=== PATIENT | female | born 1985 | race Caucasian/White ===

== ENCOUNTER 2019-02-07 08:54 | Day surgery (SDC) | payer OTHER ==
[2019-02-06 10:29] VITALS: BMI 44.2
[2019-02-07] MEDS ORDERED: LIDOCAINE 1% 20 ML VIAL (10MG/ML) FOR IV START INTRADERMA PRN (09:04)
[2019-02-07] MEDS ORDERED: LACTATED RINGERS 1,000 ML IV SCH (09:04)
[2019-02-07 09:39] VITALS: TEMP 99
[2019-02-07 09:45] LABS: Glucose,Whole Blood 110 mg/dL (75-99)
[2019-02-07] MEDS ORDERED: ONDANSETRON 4 MG/2 ML VIAL IVP ONE (09:45)
[2019-02-07] MEDS ORDERED: fentaNYL (PF) 50 MCG/ML 2 ML AMP ONE (10:18)
[2019-02-07] MEDS ORDERED: MIDAZOLAM 2 MG/2 ML VIAL ONE (10:18)
[2019-02-07] MEDS ORDERED: PROPOFOL 10 MG/ML 20 ML VIAL IV ONE (10:18)
[2019-02-07] MEDS ORDERED: LIDOCAINE 1% INJ 10MG/ML (20 ML MDV) ONE (10:18)
--- NOTE | 2019-02-07 10:50 | P.PCN ---
Date of Procedure: 02/07/19 Description of Procedure: BRIEF HISTORY: Patient is a 33-year-old pleasant female scheduled for an elective colonoscopy as a part of evaluation after her third documented episode of diverticulitis. This occurred in 11/2018 after which the patient was treated with 2 rounds of antibiotic therapy. She reports symptomatic improvement. Prior episodes did not require hospitalization. No prior colonoscopy reported. PROCEDURE PERFORMED: Colonoscopy. PREOPERATIVE DIAGNOSIS: Diverticulitis, abnormal computed tomography scan abdomen. ESTIMATED BLOOD LOSS: Minimal. IV sedation per Anesthesia. PROCEDURE: After informed consent was obtained, the patient, was brought into the endoscopy unit. IV sedation was administered by Anesthesia under continuous monitoring. Digital rectal examination was normal. Initially the Olympus CF-190 flexible video colonoscope was then inserted in the rectum, gradually advanced into the cecum without any difficulty. Careful examination was performed as the scope was gradually being withdrawn. Ileocecal valve and the appendiceal orifice were visualized and appeared normal. Prep was excellent. Mucosa of the cecum, ascending colon, transverse colon, descending colon, sigmoid colon, and rectum appeared normal. Mild left colonic diverticulosis, with multiple small mouth diverticula noted. Retroflexion was performed in the rectum and no lesions were seen. The patient tolerated the procedure well. IMPRESSION: Normal-appearing colon from rectum to cecum. Mild left-sided diverticulosis. RECOMMENDATIONS: Findings of this examination were discussed with the patient and mother. Okay to resume diet. Recommend fiber supplementation. Okay to resume medications. Repeat colonoscopy for screening purposes in 10 years.
[2019-02-07 10:53] VITALS: RESP 16
[2019-02-07 11:02] VITALS: BP 111/74; PULSE 72
== END 2019-02-07 11:16 | disposition home or self-care (01) ==
LOC: ORWHC2ENDO 08:54
PROVIDERS: ATTEND Internal Medicine
DX: K57.30 Diverticulosis of large intestine without perforation or abscess without bleeding (principal); E11.9 Type 2 diabetes mellitus without complications; K21.9 Gastro-esophageal reflux disease without esophagitis; G47.33 Obstructive sleep apnea (adult) (pediatric); Z88.1 Allergy status to other antibiotic agents; Z88.0 Allergy status to penicillin; Z99.89 Dependence on other enabling machines and devices; Z79.84 Long term (current) use of oral hypoglycemic drugs; Z79.1 Long term (current) use of non-steroidal anti-inflammatories (NSAID); Z79.890 Hormone replacement therapy; Z79.899 Other long term (current) drug therapy; E07.9 Disorder of thyroid, unspecified
CPT/HCPCS: 81025; 45378; J2250; J2405; J2001; J3010; J2704

== ENCOUNTER 2022-03-02 16:05 | Emergency (ER) | payer OTHER ==
[2022-03-02 16:08] VITALS: TEMP 96.7
[2022-03-02] MEDS ORDERED: SODIUM CHLORIDE 0.9% 1,000 ML IV STA (16:33)
[2022-03-02] MEDS ORDERED: KETOROLAC 15 MG/ML 1 ML VIAL IVP STA (16:33)
[2022-03-02] MEDS ORDERED: ONDANSETRON 4 MG/2 ML VIAL IVP STA (16:33)
--- NOTE | 2022-03-02 16:39 | ED ---
Abdominal Pain HPI - General Chief Complaint: Abdominal Pain Stated Complaint: ABD Pain Time Seen by Provider: 03/02/22 16:15 Source: patient, RN notes reviewed Mode of arrival: ambulatory Limitations: no limitations - History of Present Illness Initial Comments: This is a 36-year-old female with a past medical history of diverticulitis who presents to the emergency department for abdominal pain. States that starting yesterday, she developed pain in the left upper and lower quadrant with associated nausea, which began right after eating. She's had multiple bouts of diverticulitis and this feels similar. She most recently had diverticulitis [address] Kang does have her on dicyclomine, which she is supposed to take when she feels an episode coming on, in an attempt to limit antibiotic use. She does take [place] regularly, which has been ineffective for this pain. Believes that this was caused by eating [place] seeds. Denies any fevers, chills, sore throat, cough, dyspnea, chest pain, palpitations, vomiting, diarrhea, back pain, or headaches. MD Complaint: abdominal pain Onset/Timin -: days(s) Location: LLQ Associated Symptoms: nausea Treatments Prior to Arrival: prescription analgesics - Related Data Home Medications Medication Instructions Recorded Confirmed Gabapentin [Neurontin] 100 mg PO DAILY 02/06/19 03/02/22 Gabapentin [Neurontin] 200 mg PO DAILY@1700 02/06/19 03/02/22 Ibuprofen [Motrin] 800 mg PO TID PRN 02/06/19 03/02/22 Levothyroxine Sodium [Levoxyl] 200 mcg PO DAILY 02/06/19 03/02/22 Omeprazole 20 mg PO DAILY 02/06/19 03/02/22 Phentermine HCl [Adipex-P] 37.5 mg PO DAILY 02/06/19 03/02/22 methocarbamoL [Robaxin] 500 mg PO DAILY 02/06/19 03/02/22 Ascorbic Acid [Vitamin C] 1,000 mg PO DAILY 03/02/22 03/02/22 Calcium Carbonate [Calcium] 600 mg PO DAILY 03/02/22 03/02/22 Cetirizine HCl 10 mg PO DAILY PRN 03/02/22 03/02/22 Cholecalciferol [Vitamin D3 (25 50 mcg PO DAILY 03/02/22 03/02/22 Mcg = 1000 Iu)] Ciclopirox 8% Solution 1 applic TOPICAL HS PRN 03/02/22 03/02/22 Ciprofloxacin HCl [Cipro] 500 mg PO Q12HR 03/02/22 03/02/22 Fluticasone Nasal [place] [Flonase 2 spray EA NOSTRIL DAILY 03/02/22 03/02/22 Nasal [place]] Gabapentin [Neurontin] 100 mg PO DAILY@1200 PRN 03/02/22 03/02/22 HYDROcodone/APAP 5-325MG [[place] 1 tab PO TID PRN 03/02/22 03/02/22 5-325] Meloxicam [Mobic] 15 mg PO DAILY 03/02/22 03/02/22 Multivitamins, Thera [Multivitamin 1 tab PO DAILY 03/02/22 03/02/22 (formulary)] [place]-3/Dha/Epa/Fish Oil [Fish Oil 1 cap PO DAILY 03/02/22 03/02/22 1,000 mg Softgel] Ondansetron Odt [Zofran Odt] 4 mg PO TID PRN 03/02/22 03/02/22 Zinc Gluconate [Zinc] 50 mg PO DAILY 03/02/22 03/02/22 metFORMIN HCL ER [Glucophage XR] 500 mg PO HS 03/02/22 03/02/22 methocarbamoL [Methocarbamol] 500 mg PO DAILY PRN 03/02/22 03/02/22 methocarbamoL [Methocarbamol] 750 mg PO DAILY@1700 03/02/22 03/02/22 polyethylene glycoL 3350 [Miralax] 17 gm PO DAILY PRN 03/02/22 03/02/22 tiZANidine HCL 4 mg PO HS 03/02/22 03/02/22 Allergies Allergy/AdvReac Type Severity Reaction Status Date / Time amoxicillin Allergy Rash/Hives Verified 03/02/22 17:08 Penicillins Allergy Rash/Hives Verified 03/02/22 17:08 Review of Systems ROS Statement: Those systems with pertinent positive or pertinent negative responses have been documented in the HPI. ROS Other: All systems not noted in ROS Statement are negative. Past Medical History Past Medical History: Diabetes Mellitus, GERD/Reflux, Thyroid Disorder Additional Past Medical History / Comment(s): DIVERTICULOSIS. BOWEL PERFORATION 12/03/18-NO SURGERY REQUIRED History of Any Multi-Drug Resistant Organisms: None Reported Past Surgical History: Adenoidectomy, Bariatric Surgery, Tonsillectomy, Tubal Ligation Additional Past Surgical History / Comment(s): D & C FOR MISCARRIAGE. PAIN CLINIC PROCEDURES. WISDOM TEETH REMOVED UNDER ANESTHESIA Past Anesthesia/Blood Transfusion Reactions: No Reported Reaction Past Psychological History: Anxiety Smoking Status: Former smoker Past Alcohol Use History: None Reported Past Drug Use History: None Reported - Past Family History Mother Family Medical History: No Reported History General Exam Limitations: no limitations General appearance: alert, in no apparent distress Head exam: Present: atraumatic, normocephalic, normal inspection Respiratory exam: Present: normal lung sounds bilaterally. Absent: respiratory distress, wheezes, rales, rhonchi, stridor Cardiovascular Exam: Present: regular rate, normal rhythm, normal heart sounds. Absent: systolic murmur, diastolic murmur, rubs, gallop, clicks GI/Abdominal exam: Present: soft, tenderness (LLQ and LUQ), normal bowel sounds. Absent: distended Neurological exam: Present: alert, oriented X3, CN II-XII intact Psychiatric exam: Present: normal affect, normal mood Skin exam: Present: warm, dry, intact, normal color. Absent: rash Course Vital Signs 03/02/22 03/02/22 16:06 19:35 Temperature 96.7 F L Pulse Rate 95 74 Respiratory 18 15 Rate Blood Pressure 145/86 139/74 O2 Sat by Pulse 98 99 Oximetry Medical Decision Making - Medical Decision Making This is a 36-year-old female who presents to the emergency department for abdominal pain. Lab work obtained and found to be nonactionable. Urinalysis is negative for any signs of infection. She was given IV fluids, Zofran, and Toradol, which she states was effective in managing her symptoms. Computed tomography scan of the abdomen and pelvis obtained. On my interpretation, I do not identify any signs of free air or bowel wall thickening. She does have a gallstone in the gallbladder neck along with dilation of the gallbladder. Ultrasound of the gallbladder was subsequently obtained. I am able to visualize a gallstone in the gallbladder neck. She has a negative sonographic Hoyos's sign and no evidence for gallbladder wall thickening to suggest an acute cholecystitis. Symptoms are most likely related to an episode of biliary colic due to the lack of acute intra-abdominal process on the computed tomography scan and the noted gallstone. She was given information to follow up with general surgery and instructed to avoid fatty or greasy foods for the meantime. Return precautions reviewed in depth, the patient is instructed to return to the emergency department with any new, worsening, or concerning symptoms. Patient verbalized understanding. This case was discussed in detail with the attending ED physician. Presentation, findings, and treatment plan discussed in detail as well. - Lab Data Result diagrams: 03/02/22 Unknown 03/02/22 Unknown Lab Results 03/02/22 03/02/22 03/02/22 Range/Units Unknown Unknown Unknown WBC 6.9 (3.8-10.6) k/uL RBC 4.68 (3.80-5.40) m/uL Hgb 15.0 (11.4-16.0) gm/dL Hct 42.7 (34.0-46.0) % MCV 91.2 (80.0-100.0) fL MCH 32.0 (25.0-35.0) pg MCHC 35.1 (31.0-37.0) g/dL RDW 12.0 (11.5-15.5) % Plt Count 333 (150-450) k/uL MPV 7.8 Neutrophils % 61 % Lymphocytes % 30 % Monocytes % 5 % Eosinophils % 2 % Basophils % 1 % Neutrophils # 4.2 (1.3-7.7) k/uL Lymphocytes # 2.1 (1.0-4.8) k/uL Monocytes # 0.3 (0-1.0) k/uL Eosinophils # 0.1 (0-0.7) k/uL Basophils # 0.1 (0-0.2) k/uL Sodium (137-145) mmol/L Potassium (3.5-5.1) mmol/L Chloride (98-107) mmol/L Carbon Dioxide (22-30) mmol/L Anion Gap mmol/L BUN (7-17) mg/dL Creatinine (0.52-1.04) mg/dL Est GFR (CKD-EPI)AfAm (>60 ml/min/1.73 sqM) Est GFR (CKD-EPI)NonAf (>60 ml/min/1.73 sqM) Glucose (74-99) mg/dL Calcium (8.4-10.2) mg/dL Total Bilirubin (0.2-1.3) mg/dL AST (14-36) U/L ALT (4-34) U/L Alkaline Phosphatase (38-126) U/L Total Protein (6.3-8.2) g/dL Albumin (3.5-5.0) g/dL Amylase (30-110) U/L Lipase (23-300) U/L Urine Color Yellow Urine Appearance Cloudy H (Clear) Urine pH 6.5 (5.0-8.0) Ur Specific [place] 1.034 (1.001-1.035) Urine Protein 1+ H (Negative) Urine Glucose (UA) Negative (Negative) Urine Ketones Negative (Negative) Urine Blood Negative (Negative) Urine Nitrite Negative (Negative) Urine Bilirubin Negative (Negative) Urine Urobilinogen <2.0 (<2.0) mg/dL Ur Leukocyte Esterase Negative (Negative) Urine RBC 7 H (0-5) /hpf Urine WBC 1 (0-5) /hpf Ur Squamous Epith Cells 5 H (0-4) /hpf Urine Mucus Many H (None) /hpf Urine HCG, Qual Not Detected (Not Detectd) 03/02/22 Range/Units Unknown WBC (3.8-10.6) k/uL RBC (3.80-5.40) m/uL Hgb (11.4-16.0) gm/dL Hct (34.0-46.0) % MCV (80.0-100.0) fL MCH (25.0-35.0) pg MCHC (31.0-37.0) g/dL RDW (11.5-15.5) % Plt Count (150-450) k/uL MPV Neutrophils % % Lymphocytes % % Monocytes % % Eosinophils % % Basophils % % Neutrophils # (1.3-7.7) k/uL Lymphocytes # (1.0-4.8) k/uL Monocytes # (0-1.0) k/uL Eosinophils # (0-0.7) k/uL Basophils # (0-0.2) k/uL Sodium 139 (137-145) mmol/L Potassium 4.0 (3.5-5.1) mmol/L Chloride 101 (98-107) mmol/L Carbon Dioxide 31 H (22-30) mmol/L Anion Gap 7 mmol/L BUN 22 H (7-17) mg/dL Creatinine 0.53 (0.52-1.04) mg/dL Est GFR (CKD-EPI)AfAm >90 (>60 ml/min/1.73 sqM) Est GFR (CKD-EPI)NonAf >90 (>60 ml/min/1.73 sqM) Glucose 95 (74-99) mg/dL Calcium 9.5 (8.4-10.2) mg/dL Total Bilirubin 0.4 (0.2-1.3) mg/dL AST 18 (14-36) U/L ALT 20 (4-34) U/L Alkaline Phosphatase 89 (38-126) U/L Total Protein 7.5 (6.3-8.2) g/dL Albumin 4.8 (3.5-5.0) g/dL Amylase 56 (30-110) U/L Lipase 72 (23-300) U/L Urine Color Urine Appearance (Clear) Urine pH (5.0-8.0) Ur Specific [place] (1.001-1.035) Urine Protein (Negative) Urine Glucose (UA) (Negative) Urine Ketones (Negative) Urine Blood (Negative) Urine Nitrite (Negative) Urine Bilirubin (Negative) Urine Urobilinogen (<2.0) mg/dL Ur Leukocyte Esterase (Negative) Urine RBC (0-5) /hpf Urine WBC (0-5) /hpf Ur Squamous Epith Cells (0-4) /hpf Urine Mucus (None) /hpf Urine HCG, Qual (Not Detectd) - Radiology Data Radiology results: report reviewed, image reviewed Disposition Clinical Impression: Abdominal pain, Biliary colic Disposition: HOME SELF-CARE Instructions (If sedation given, give patient instructions): Biliary Colic (ED), Gallstones (ED), Low Fat Diet (ED), Abdominal Pain (ED) Additional Instructions: Return to the emergency department with any new, worsening, or concerning symptoms. Contact Dr. Peoples, general surgery, as listed below to discuss removal of your gallbladder. Follow up with your primary care provider in 1-2 days. Is patient prescribed a controlled substance at d/c from ED?: No Referrals: Nonstaff,Physician [REFERRING] - 1-2 days Carissa Peoples MD [STAFF PHYSICIAN] - 1-2 days
[2022-03-02 16:54] LABS: Basophils # (A) 0.1 k/uL (0-0.2); Basophils % (A) 1 %; Eosinophils # (A) 0.1 k/uL (0-0.7); Eosinophils % (A) 2 %; HCT 42.7 % (34.0-46.0); Lymphocytes # (A) 2.1 k/uL (1.0-4.8); Lymphocytes % (A) 30 %; MCHC 35.1 g/dL (31.0-37.0); MCV 91.2 fL (80.0-100.0); Mean Platelet Volume 7.8; Monocytes # (A) 0.3 k/uL (0-1.0); Monocytes % (A) 5 %; Neutrophils # (A) 4.2 k/uL (1.3-7.7); Neutrophils % (A) 61 %; Platelet Count 333 k/uL (150-450); RBC 4.68 m/uL (3.80-5.40); WBC 6.9 k/uL (3.8-10.6)
[2022-03-02 17:09] LABS: ALT 20 U/L (4-34); AST 18 U/L (14-36); African American GFR (CKD) >90 (>60 ml/min/1.73 sqM); Albumin 4.8 g/dL (3.5-5.0); Alkaline Phosphatase 89 U/L (38-126); Amylase 56 U/L (30-110); Anion Gap 7 mmol/L; Blood Urea Nitrogen 22 mg/dL (7-17); Calcium 9.5 mg/dL (8.4-10.2); Carbon Dioxide 31 mmol/L (22-30); Chloride 101 mmol/L (98-107); Glucose 95 mg/dL (74-99); Lipase 72 U/L (23-300); Non-African American GFR(CKD) >90 (>60 ml/min/1.73 sqM); Sodium 139 mmol/L (137-145); Total Bilirubin 0.4 mg/dL (0.2-1.3); Total Protein 7.5 g/dL (6.3-8.2)
--- NOTE | 2022-03-02 18:01 | CT ---
EXAMINATION TYPE: CT abdomen pelvis w con CT DLP: 1389.1 mGycm, Automated exposure control for dose reduction was used. DATE OF EXAM: 03/02/2022 5:35 PM COMPARISON: None CLINICAL INDICATION:Female, 36 years old with history of LLQ abdominal pain, hx of diverticulitis; LL Q pain, h/o diverticulitis TECHNIQUE: Axial CT of the abdomen and pelvis. Sagittal and coronal reformats were created on a [employer] workstation. Contrast used:100 mL of Isovue 300 with IV Contrast, Oral contrast used: without Oral Contrast FINDINGS: LOWER CHEST: Unremarkable ABDOMEN LIVER: Unremarkable GALLBLADDER AND BILE DUCTS: Large gallstone in the gallbladder neck. Gallbladder somewhat distended. PANCREAS: Unremarkable. SPLEEN: Unremarkable. ADRENAL GLANDS: Unremarkable. KIDNEYS AND URETERS: No evidence of hydronephrosis or renal calculus. The ureters are unremarkable. PELVIS BLADDER: Nondistended REPRODUCTIVE: Dominant left ovarian follicle measuring up to 2.7 cm. ABDOMEN & PELVIS STOMACH AND BOWEL: No evidence of bowel obstruction. Postsurgical changes to the gastric lumen. Appen [place] is normal. Scattered clonic diverticula present. There is redundant sigmoid colon. PERITONEUM: No evidence of pneumoperitoneum or free fluid. VASCULATURE: No evidence of aortic aneurysm. MUSCULOSKELETAL: No acute osseous abnormalities, multilevel disc degeneration changes of the spine. LYMPH NODES: No gross evidence for lymphadenopathy. SOFT TISSUE/ABDOMINAL WALL: Unremarkable IMPRESSION: 1. No evidence for acute abdominal process. 2. Scattered clonic diverticula without evidence for radiculitis. 3. Cholelithiasis with a distended gallbladder. 4. Post surgical changes stomach. 5. Dominant left ovarian follicle measuring up to 2.7 cm.
[2022-03-02 18:09] LABS: Appearance,Urine Cloudy (Clear); Bilirubin,Urine Negative (Negative); Blood,Urine Negative (Negative); Color,Urine Yellow; Glucose,Urine (UA) Negative (Negative); Ketones,Urine Negative (Negative); Leukocyte Esterase,Urine Negative (Negative); Mucus,Urine Many /hpf; Nitrite,Urine Negative (Negative); PH, Urine 6.5 (5.0-8.0); Protein,Urine 1+ (Negative); RBC,Urine 7 /hpf (0-5); Specific Gravity,Urine 1.034 (1.001-1.035); Squamous Epithelial Cell,Urine 5 /hpf (0-4); Urobilinogen,Urine <2.0 mg/dL (<2.0); WBC,Urine 1 /hpf (0-5)
--- NOTE | 2022-03-02 18:59 | US ---
EXAMINATION TYPE: US gallbladder DATE OF EXAM: 03/02/2022 COMPARISON: CT: Today CLINICAL HISTORY: Upper abdominal pain, distended gallbladder on CT. abd pain x 1 day. Cholelithiasis TECHNIQUE: Multiple sonographic images of the right upper quadrant are obtained. FINDINGS: EXAM MEASUREMENTS: Liver Length: 13.6 cm Gallbladder Wall: 0.23 cm CBD: 0.50 cm Right Kidney: 11.4 x 5.6 x 4.9 cm Pancreas: Obscured by bowel gas Liver: wnl Gallbladder: Large mobile gallstone visualized Evidence for sonographic Hoyos's sign: No CBD: wnl Right Kidney: wnl IMPRESSION: Cholelithiasis without evidence for acute cholecystitis.
[2022-03-02 19:35] VITALS: BP 139/74; PULSE 74; RESP 15
== END 2022-03-02 19:35 | disposition home or self-care (01) ==
LOC: EC 16:05
DX: K80.66 Calculus of gallbladder and bile duct with acute and chronic cholecystitis without obstruction (principal); E11.9 Type 2 diabetes mellitus without complications; K21.9 Gastro-esophageal reflux disease without esophagitis; E07.9 Disorder of thyroid, unspecified; F41.9 Anxiety disorder, unspecified; Z88.0 Allergy status to penicillin; Z87.891 Personal history of nicotine dependence; Z79.83 Long term (current) use of bisphosphonates; Z79.899 Other long term (current) drug therapy
CPT/HCPCS: 36415; 80053; 82150; 83690; 85025; 81001; 81025; 76705; 74177; 99284; 96374; 96375; 96361; J2405; J1885; Q9967

== ENCOUNTER 2022-03-03 19:11 | Observation (INO) | payer OTHER ==
[2022-03-03] MEDS ORDERED: SODIUM CHLORIDE 0.9% 1,000 ML IV STA (20:54)
[2022-03-03] MEDS ORDERED: HYDROmorphone 1 MG/ML 1 ML SYRINGE IVP STA (21:01)
[2022-03-03] MEDS ORDERED: SODIUM CHLORIDE 0.9% 2,000 ML IV ONE (21:01)
[2022-03-03] MEDS ORDERED: ONDANSETRON 4 MG/2 ML VIAL IVP STA (21:02)
[2022-03-03 21:23] LABS: Basophils # (A) 0.1 k/uL (0-0.2); Basophils % (A) 0 %; Eosinophils # (A) 0.1 k/uL (0-0.7); Eosinophils % (A) 1 %; HCT 47.1 % (34.0-46.0); HGB 16.4 gm/dL (11.4-16.0); Lymphocytes # (A) 1.5 k/uL (1.0-4.8); Lymphocytes % (A) 12 %; MCH 31.9 pg (25.0-35.0); MCHC 34.8 g/dL (31.0-37.0); MCV 91.7 fL (80.0-100.0); Monocytes # (A) 0.5 k/uL (0-1.0); Monocytes % (A) 4 %; Neutrophils # (A) 10.5 k/uL (1.3-7.7); Neutrophils % (A) 82 %; Platelet Count 319 k/uL (150-450); RBC 5.14 m/uL (3.80-5.40); RDW 11.9 % (11.5-15.5); WBC 12.7 k/uL (3.8-10.6)
--- NOTE | 2022-03-03 21:47 | ED ---
Abdominal Pain HPI - General Chief Complaint: Abdominal Pain Stated Complaint: Abd Pain Time Seen by Provider: 03/03/22 20:53 Source: patient, RN notes reviewed Mode of arrival: ambulatory Limitations: no limitations - History of Present Illness Initial Comments: This is a pleasant 36-year-old female presents to emergency department complaining of right upper quadrant abdominal pain. She is describing sharp pain which is exacerbated by taking anything by mouth. This includes fluids. Patient states she left here last night after having the same pain. Patient states it was controlled somewhat. However she states when she went to take her medications with only a sip of water this morning. She had an increase in pain again. Patient also has had vomiting. Denying any fever. Patient had both a computed tomography scan and an ultrasound last night. Patient previously has had gastric bypass surgery [place]. No headache, no fever or chills, no changes in vision or hearing, no sore throat or difficulty with speech, no neck pain, no chest pain or shortness of breath, no changes in urination or bowel movements, no numbness or tingling, no extremity pain, no skin rashes or lesions. Past medical, surgical, social, and family history reviewed. MD Complaint: abdominal pain - Related Data Home Medications Medication Instructions Recorded Confirmed Gabapentin [Neurontin] 100 mg PO DAILY 02/06/19 03/03/22 Gabapentin [Neurontin] 200 mg PO DAILY@1700 02/06/19 03/03/22 Ibuprofen [Motrin] 800 mg PO TID PRN 02/06/19 03/03/22 Levothyroxine Sodium [Levoxyl] 200 mcg PO DAILY 02/06/19 03/03/22 Omeprazole 20 mg PO DAILY 02/06/19 03/03/22 Phentermine HCl [Adipex-P] 37.5 mg PO DAILY 02/06/19 03/03/22 methocarbamoL [Robaxin] 500 mg PO DAILY 02/06/19 03/03/22 Ascorbic Acid [Vitamin C] 1,000 mg PO DAILY 03/02/22 03/03/22 Calcium Carbonate [Calcium] 600 mg PO DAILY 03/02/22 03/03/22 Cetirizine HCl 10 mg PO DAILY PRN 03/02/22 03/03/22 Cholecalciferol [Vitamin D3 (25 50 mcg PO DAILY 03/02/22 03/03/22 Mcg = 1000 Iu)] Ciclopirox 8% Solution 1 applic TOPICAL HS PRN 03/02/22 03/03/22 Ciprofloxacin HCl [Cipro] 500 mg PO Q12HR 03/02/22 03/03/22 Fluticasone Nasal [place] [Flonase 2 spray EA NOSTRIL DAILY 03/02/22 03/03/22 Nasal [place]] Gabapentin [Neurontin] 100 mg PO DAILY@1200 PRN 03/02/22 03/03/22 HYDROcodone/APAP 5-325MG [[place] 1 tab PO TID PRN 03/02/22 03/03/22 5-325] Meloxicam [Mobic] 15 mg PO DAILY 03/02/22 03/03/22 Multivitamins, Thera [Multivitamin 1 tab PO DAILY 03/02/22 03/03/22 (formulary)] [place]-3/Dha/Epa/Fish Oil [Fish Oil 1 cap PO DAILY 03/02/22 03/03/22 1,000 mg Softgel] Ondansetron Odt [Zofran Odt] 4 mg PO TID PRN 03/02/22 03/03/22 Zinc Gluconate [Zinc] 50 mg PO DAILY 03/02/22 03/03/22 metFORMIN HCL ER [Glucophage XR] 500 mg PO HS 03/02/22 03/03/22 methocarbamoL [Methocarbamol] 500 mg PO DAILY PRN 03/02/22 03/03/22 methocarbamoL [Methocarbamol] 750 mg PO DAILY@1700 03/02/22 03/03/22 polyethylene glycoL 3350 [Miralax] 17 gm PO DAILY PRN 03/02/22 03/03/22 tiZANidine HCL 4 mg PO HS 03/02/22 03/03/22 Allergies Allergy/AdvReac Type Severity Reaction Status Date / Time amoxicillin Allergy Rash/Hives Verified 03/03/22 20:29 Penicillins Allergy Rash/Hives Verified 03/03/22 20:29 Review of Systems ROS Statement: Those systems with pertinent positive or pertinent negative responses have been documented in the HPI. ROS Other: All systems not noted in ROS Statement are negative. Past Medical History Past Medical History: Diabetes Mellitus, GERD/Reflux, Thyroid Disorder Additional Past Medical History / Comment(s): DIVERTICULOSIS. BOWEL PERFORATION 12/03/18-NO SURGERY REQUIRED History of Any Multi-Drug Resistant Organisms: None Reported Past Surgical History: Adenoidectomy, Bariatric Surgery, Tonsillectomy, Tubal Ligation Additional Past Surgical History / Comment(s): D & C FOR MISCARRIAGE. PAIN CLINIC PROCEDURES. WISDOM TEETH REMOVED UNDER ANESTHESIA Past Anesthesia/Blood Transfusion Reactions: No Reported Reaction Past Psychological History: Anxiety Smoking Status: Former smoker Past Alcohol Use History: None Reported Past Drug Use History: None Reported - Past Family History Mother Family Medical History: No Reported History General Exam Limitations: no limitations General appearance: alert, in distress Head exam: Present: atraumatic, normocephalic, normal inspection Eye exam: Present: normal appearance, PERRL, EOMI. Absent: scleral icterus, conjunctival injection, periorbital swelling ENT exam: Present: normal exam, mucous membranes moist Neck exam: Present: normal inspection, full ROM. Absent: tenderness, meningismus, lymphadenopathy Respiratory exam: Present: normal lung sounds bilaterally. Absent: respiratory distress, wheezes, rales, rhonchi, stridor Cardiovascular Exam: Present: regular rate, normal rhythm, normal heart sounds. Absent: systolic murmur, diastolic murmur, rubs, gallop, clicks GI/Abdominal exam: Present: soft, tenderness (Right upper quadrant), guarding, normal bowel sounds. Absent: distended, rebound, rigid Extremities exam: Present: normal inspection, full ROM, normal capillary refill. Absent: tenderness, pedal edema, joint swelling, calf tenderness Back exam: Present: normal inspection Neurological exam: Present: alert, oriented X3, CN II-XII intact Psychiatric exam: Present: normal affect, normal mood Skin exam: Present: warm, dry, intact, normal color. Absent: rash Course Vital Signs 03/03/22 20:29 Temperature 98.3 F Pulse Rate 88 Respiratory 18 Rate Blood Pressure 127/90 O2 Sat by Pulse 98 Oximetry - Reevaluation(s) Reevaluation #1: 03/03/22 23:11 Patient reevaluated, patient still having pain and nausea. Seems like the vomiting has been controlled. Chest ultrasound shows a dilated gallbladder with large stone in the gallbladder neck. Possible cholecystitis. Antibiotics ordered. We'll consult surgery. Reevaluation #2: 03/03/22 23:19 Patient unable to hold down fluids without increasing pain, nausea, vomiting. - Consultations Consultation #1: Case discussed in detail with Dr. Chavez with sepsis patient for observation. Patient will be covered with antibiotics, reevaluated by surgery in the morning. We'll keep the patient nothing by mouth. Medical Decision Making - Medical Decision Making Patient presents here with right upper quadrant abdominal pain. Vomiting. Unable to hold down any fluids. Patient does have an elevated white blood cell count today, 12,700. Some hemoconcentration with a hemoglobin of 16.4 and hematocrit 47.1. Neutrophil count 10,500. 82% neutrophils. Going to repeat the ultrasound. Patient states she tried a meal last night which exacerbated the pain greatly. Case discussed with on-call surgery, Dr. Chavez. The case was discussed in detail with ED attending physician. Presentation, findings, treatment plan discussed in detail. Vislester Conrad - Lab Data Result diagrams: 03/03/22 21:18 03/03/22 22:15 Lab Results 03/03/22 03/03/22 03/03/22 Range/Units 21:18 21:18 22:15 WBC 12.7 H (3.8-10.6) k/uL RBC 5.14 (3.80-5.40) m/uL Hgb 16.4 H (11.4-16.0) gm/dL Hct 47.1 H (34.0-46.0) % MCV 91.7 (80.0-100.0) fL MCH 31.9 (25.0-35.0) pg MCHC 34.8 (31.0-37.0) g/dL RDW 11.9 (11.5-15.5) % Plt Count 319 (150-450) k/uL MPV 8.0 Neutrophils % 82 % Lymphocytes % 12 % Monocytes % 4 % Eosinophils % 1 % Basophils % 0 % Neutrophils # 10.5 H (1.3-7.7) k/uL Lymphocytes # 1.5 (1.0-4.8) k/uL Monocytes # 0.5 (0-1.0) k/uL Eosinophils # 0.1 (0-0.7) k/uL Basophils # 0.1 (0-0.2) k/uL Sodium 138 (137-145) mmol/L Potassium 5.4 H (3.5-5.1) mmol/L Chloride 110 H (98-107) mmol/L Carbon Dioxide 22 (22-30) mmol/L Anion Gap 6 mmol/L BUN 14 (7-17) mg/dL Creatinine 0.44 L (0.52-1.04) mg/dL Est GFR (CKD-EPI)AfAm >90 (>60 ml/min/1.73 sqM) Est GFR (CKD-EPI)NonAf >90 (>60 ml/min/1.73 sqM) Glucose 95 (74-99) mg/dL Plasma Lactic Acid [place] 1.3 (0.7-2.0) mmol/L Calcium 8.1 L (8.4-10.2) mg/dL Total Bilirubin 1.0 (0.2-1.3) mg/dL AST 31 (14-36) U/L ALT 15 (4-34) U/L Alkaline Phosphatase 59 (38-126) U/L Total Protein 6.7 (6.3-8.2) g/dL Albumin 4.1 (3.5-5.0) g/dL Amylase 41 (30-110) U/L Lipase 38 (23-300) U/L Disposition Clinical Impression: Cholecystitis with cholelithiasis Disposition: ADMITTED IP TO THIS [facility] Condition: Stable Referrals: HERACLIO MAN MD [Primary Care Provider] - 1-2 days Time of Disposition: 23:14 Decision to Admit Reason: Admit from EC Decision Time: 23:14
[2022-03-03 22:42] LABS: ALT 15 U/L (4-34); African American GFR (CKD) >90 (>60 ml/min/1.73 sqM); Amylase 41 U/L (30-110); Anion Gap 6 mmol/L; Blood Urea Nitrogen 14 mg/dL (7-17); Calcium 8.1 mg/dL (8.4-10.2); Carbon Dioxide 22 mmol/L (22-30); Chloride 110 mmol/L (98-107); Glucose 95 mg/dL (74-99); Lipase 38 U/L (23-300); Non-African American GFR(CKD) >90 (>60 ml/min/1.73 sqM); Sodium 138 mmol/L (137-145)
--- NOTE | 2022-03-03 22:49 | US ---
EXAMINATION TYPE: US gallbladder DATE OF EXAM: 03/03/2022 COMPARISON: NONE CLINICAL HISTORY: Right upper quadrant pain. Pain and vomiting. TECHNIQUE: Multiple sonographic images of the right upper quadrant are obtained. FINDINGS: EXAM MEASUREMENTS: Liver Length: 14.2 cm Gallbladder Wall: .2 cm CBD: .5 cm Right Kidney: 9.8 x 4.8 x 5.1 cm [employer] NOTES: Pancreas: Obscured by bowel gas Liver: wnl Gallbladder: 2 cm stone Evidence for sonographic Hoyos's sign: No CBD: wnl Right Kidney: wnl IMPRESSION: Large gallstone near the gallbladder neck. Gallbladder dilated and measures 4.6 cm in diameter that c ould be cholecystitis. No dilated ducts.
[2022-03-03 23:02] LABS: AST 31 U/L (14-36); Albumin 4.1 g/dL (3.5-5.0); Alkaline Phosphatase 59 U/L (38-126); Potassium 5.4 mmol/L (3.5-5.1); Total Protein 6.7 g/dL (6.3-8.2)
[2022-03-03] MEDS ORDERED: LEVOFLOXACIN 750MG-D5W PMX 750 MG in DEXTROSE/WATER 1 150ML.BAG IVPB STA (23:09)
[2022-03-03] MEDS ORDERED: metroNIDAZOLE-NS PMX 500 MG in SALINE 1 100ML.BAG IVPB STA (23:10)
[2022-03-03] MEDS ORDERED: NALOXONE 0.4 MG/ML 1 ML VIAL IV PRN (23:25)
[2022-03-03] MEDS ORDERED: ONDANSETRON 4 MG/2 ML VIAL IVP PRN (23:25)
[2022-03-03] MEDS ORDERED: HYDROmorphone 1 MG/ML 1 ML SYRINGE IVP PRN (23:25)
[2022-03-03] MEDS ORDERED: DEXTROSE 50% SYRINGE 50 ML IVP PRN ×2 (23:29)
[2022-03-03] MEDS ORDERED: ORPHENADRINE 30 MG/ML 2 ML VIAL IVP SCH (23:30)
[2022-03-03] MEDS ORDERED: SODIUM CHLORIDE 0.9% 1,000 ML IV SCH (23:30)
[2022-03-03] MEDS: INSULIN ASPART (NovoLOG) 100 UNIT/ML VIAL SQ SCH (23:36)
[2022-03-04] MEDS ORDERED: PANTOPRAZOLE 40 MG/10 ML VIAL IVP STA ×2 (02:23→02:37)
[2022-03-04 04:59] LABS: Basophils % (A) 0 %; Eosinophils # (A) 0.1 k/uL (0-0.7); Eosinophils % (A) 1 %; HCT 38.3 % (34.0-46.0); Lymphocytes # (A) 1.7 k/uL (1.0-4.8); Lymphocytes % (A) 21 %; MCH 32.4 pg (25.0-35.0); MCHC 34.8 g/dL (31.0-37.0); MCV 93.2 fL (80.0-100.0); Mean Platelet Volume 8.1; Monocytes # (A) 0.5 k/uL (0-1.0); Monocytes % (A) 6 %; Neutrophils # (A) 5.5 k/uL (1.3-7.7); Neutrophils % (A) 70 %; Platelet Count 258 k/uL (150-450); RBC 4.11 m/uL (3.80-5.40); WBC 7.9 k/uL (3.8-10.6)
[2022-03-04 05:09] LABS: HGB 13.3 gm/dL (11.4-16.0)
[2022-03-04 05:14] LABS: ALT 13 U/L (4-34); AST 13 U/L (14-36); African American GFR (CKD) >90 (>60 ml/min/1.73 sqM); Albumin 3.8 g/dL (3.5-5.0); Alkaline Phosphatase 65 U/L (38-126); Anion Gap 5 mmol/L; Blood Urea Nitrogen 12 mg/dL (7-17); Calcium 8.5 mg/dL (8.4-10.2); Carbon Dioxide 27 mmol/L (22-30); Chloride 107 mmol/L (98-107); Glucose 88 mg/dL (74-99); Lipase 47 U/L (23-300); Non-African American GFR(CKD) >90 (>60 ml/min/1.73 sqM); Potassium 4.5 mmol/L (3.5-5.1); Sodium 139 mmol/L (137-145); Total Bilirubin 0.6 mg/dL (0.2-1.3)
[2022-03-04 05:40] LABS: Glucose,Whole Blood 94 mg/dL (70-110)
[2022-03-04] MEDS: INSULIN ASPART (NovoLOG) 100 UNIT/ML VIAL SQ SCH (05:42)
[2022-03-04 05:45] VITALS: TEMP 98.7
[2022-03-04] MEDS ORDERED: metroNIDAZOLE-NS PMX 500 MG in SALINE 1 100ML.BAG IVPB SCH (08:00)
[2022-03-04] MEDS ORDERED: FLUTICASONE 50MCG/SPRAY NASAL 16GM EA NOSTRIL SCH (09:00)
--- NOTE | 2022-03-04 09:41 | P.GSHP ---
History of Present Illness H&P Date: 03/04/22 Chief Complaint: Abdominal pain and nausea, history of Magi-en-Y gastric bypass, gallstone Patient is a 36-year-old lady who presented to [facility] emergency department the evening of 03/03/2022 with chief complaint of a recurrent bouts of epigastric abdominal pain with some intermittent route radiation to the right flank and left shoulder of close to 24 hours duration accompanied by subjective chills. She been seen in the emergency department for similar issues within the past few days, her symptoms resolved with observation and she was discharged home with a bland low-fat diet. She hasn't been having these sorts of issues until the past week or so. She tells me that she took her of daily medications with a simple water and she had abrupt onset of severe, somewhat diffuse epigastric pain with some radiation of the right upper quadrant and flank, left shoulder and left lower quadrant. She admits to intractable symptoms of nausea and a subsequent to a laparoscopic Magi-en-Y gastric bypass with Dr. Venkatesh Tyler at [facility] in 2019. Her symptoms are typically well managed with Zofran. It sounds like she lost somewhere close to 170 pounds, had some issues with the postoperative weight gain and has lost most of the weight that she regained a fter surgery. It's been at least a year since she is followed up with Dr. Tyler, has not yet undergone upper endoscopy postoperatively, his never been diagnosed with the problems with her anastomosis or marginal ulcer. 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 She had a mild leukocytosis on presentation at just over 12,000, remaining of laboratory studies were all within normal limits. She's had a hemodynamically stable and afebrile appearance overnight. An abdominal ultrasound was obtained showing a gallstone at the neck of the gallbladder, no significant gallbladder wall thickening, measured at 2 mm and a 5 mm common duct. No pericholecystic fluid noted. This morning she tells me that she is feeling fine, her symptoms of pain and nausea have resolved, she is starting to feel hungry. Her presenting mild leukocytosis has resolved on follow-up labs. - Review of Systems All systems: negative Past Medical History Past Medical History: Diabetes Mellitus, GERD/Reflux, Thyroid Disorder Additional Past Medical History / Comment(s): DIVERTICULOSIS. BOWEL PERFORATION 12/03/18-NO SURGERY REQUIRED History of Any Multi-Drug Resistant Organisms: None Reported Past Surgical History: Adenoidectomy, Bariatric Surgery, Tonsillectomy, Tubal Ligation Additional Past Surgical History / Comment(s): D & C FOR MISCARRIAGE. PAIN CLINIC PROCEDURES. WISDOM TEETH REMOVED UNDER ANESTHESIA Past Anesthesia/Blood Transfusion Reactions: No Reported Reaction Past Psychological History: Anxiety Smoking Status: Former smoker Past Alcohol Use History: None Reported Past Drug Use History: None Reported - Past Family History Mother Family Medical History: No Reported History Medications and Allergies Home Medications Medication Instructions Recorded Confirmed Type Gabapentin [Neurontin] 100 mg PO DAILY 02/06/19 03/03/22 History Gabapentin [Neurontin] 200 mg PO DAILY@1700 02/06/19 03/03/22 History Ibuprofen [Motrin] 800 mg PO TID PRN 02/06/19 03/03/22 History Levothyroxine Sodium [Levoxyl] 200 mcg PO DAILY 02/06/19 03/03/22 History Omeprazole 20 mg PO DAILY 02/06/19 03/03/22 History Phentermine HCl [Adipex-P] 37.5 mg PO DAILY 02/06/19 03/03/22 History methocarbamoL [Robaxin] 500 mg PO DAILY 02/06/19 03/03/22 History Ascorbic Acid [Vitamin C] 1,000 mg PO DAILY 03/02/22 03/03/22 History Calcium Carbonate [Calcium] 600 mg PO DAILY 03/02/22 03/03/22 History Cetirizine HCl 10 mg PO DAILY PRN 03/02/22 03/03/22 History Cholecalciferol [Vitamin D3 (25 50 mcg PO DAILY 03/02/22 03/03/22 History Mcg = 1000 Iu)] Ciclopirox 8% Solution 1 applic TOPICAL HS PRN 03/02/22 03/03/22 History Ciprofloxacin HCl [Cipro] 500 mg PO Q12HR 03/02/22 03/03/22 History Fluticasone Nasal [place] [Flonase 2 spray EA NOSTRIL DAILY 03/02/22 03/03/22 History Nasal [place]] Gabapentin [Neurontin] 100 mg PO DAILY@1200 PRN 03/02/22 03/03/22 History HYDROcodone/APAP 5-325MG [[place] 1 tab PO TID PRN 03/02/22 03/03/22 History 5-325] Meloxicam [Mobic] 15 mg PO DAILY 03/02/22 03/03/22 History Multivitamins, Thera [Multivitamin 1 tab PO DAILY 03/02/22 03/03/22 History (formulary)] [place]-3/Dha/Epa/Fish Oil [Fish Oil 1 cap PO DAILY 03/02/22 03/03/22 History 1,000 mg Softgel] Ondansetron Odt [Zofran Odt] 4 mg PO TID PRN 03/02/22 03/03/22 History Zinc Gluconate [Zinc] 50 mg PO DAILY 03/02/22 03/03/22 History metFORMIN HCL ER [Glucophage XR] 500 mg PO HS 03/02/22 03/03/22 History methocarbamoL [Methocarbamol] 500 mg PO DAILY PRN 03/02/22 03/03/22 History methocarbamoL [Methocarbamol] 750 mg PO DAILY@1700 03/02/22 03/03/22 History polyethylene glycoL 3350 [Miralax] 17 gm PO DAILY PRN 03/02/22 03/03/22 History tiZANidine HCL 4 mg PO HS 03/02/22 03/03/22 History Scopolamine 1 mg/72 Hr Patch 1 patch TRANSDERM Q72H PRN #3 patch 03/04/22 Rx [TransDerm Scop] Allergies Allergy/AdvReac Type Severity Reaction Status Date / Time amoxicillin Allergy Rash/Hives Verified 03/03/22 20:29 Penicillins Allergy Rash/Hives Verified 03/03/22 20:29 Surgical - Exam Osteopathic Statement: *. No significant issues noted on an osteopathic structural exam other than those noted in the History and Physical/Consult. Vital Signs Temp Pulse Resp BP Pulse Ox 98.3 F 88 18 127/90 98 03/03/22 20:29 03/03/22 20:29 03/03/22 20:29 03/03/22 20:29 03/03/22 20:29 - General well developed, well nourished, no distress, no pain - Eyes PERRL, normal ocular movement - ENT normal pinna, normal nares, normal mucosa, no hearing loss, no congestion - Neck trachea midline, no lymphadectomy, no venous distension - Respiratory normal expansion, clear to auscultation - Abdomen Abdomen is soft. No guarding, rebound, or distention, there is mild diffuse tenderness to palpation overall aspects of the abdomen which the patient tells me is chronic in nature. No focal right upper quadrant tenderness on palpation, there is some more focal left upper quadrant tenderness on deep palpation. No clinical signs of jaundice, I don't appreciate port site hernia on exam. Abdomen: soft, non tender - Integumentary no rash, no growths, no abnormal pigmentation - Neurologic normal coordination, normal sensation - Psychiatric oriented to time, oriented to person, oriented to place, speech is normal, memory intact Results - Labs 03/04/22 04:40 03/04/22 04:40 Abnormal Lab Results - Last 24 Hours (Table) 03/03/22 03/03/22 03/04/22 Range/Units 21:18 22:15 04:40 WBC 12.7 H (3.8-10.6) k/uL Hgb 16.4 H (11.4-16.0) gm/dL Hct 47.1 H (34.0-46.0) % Neutrophils # 10.5 H (1.3-7.7) k/uL Potassium 5.4 H (3.5-5.1) mmol/L Chloride 110 H (98-107) mmol/L Creatinine 0.44 L 0.51 L (0.52-1.04) mg/dL Calcium 8.1 L (8.4-10.2) mg/dL AST 13 L (14-36) U/L Total Protein 6.0 L (6.3-8.2) g/dL Diabetes panel 03/03/22 03/04/22 Range/Units 22:15 04:40 Sodium 138 139 (137-145) mmol/L Potassium 5.4 H 4.5 (3.5-5.1) mmol/L Chloride 110 H 107 (98-107) mmol/L Carbon Dioxide 22 27 (22-30) mmol/L BUN 14 12 (7-17) mg/dL Creatinine 0.44 L 0.51 L (0.52-1.04) mg/dL Glucose 95 88 (74-99) mg/dL Calcium 8.1 L 8.5 (8.4-10.2) mg/dL AST 31 13 L (14-36) U/L ALT 15 13 (4-34) U/L Alkaline Phosphatase 59 65 (38-126) U/L Total Protein 6.7 6.0 L (6.3-8.2) g/dL Albumin 4.1 3.8 (3.5-5.0) g/dL Calcium panel 03/03/22 03/04/22 Range/Units 22:15 04:40 Calcium 8.1 L 8.5 (8.4-10.2) mg/dL Albumin 4.1 3.8 (3.5-5.0) g/dL Pituitary panel 03/03/22 03/04/22 Range/Units 22:15 04:40 Sodium 138 139 (137-145) mmol/L Potassium 5.4 H 4.5 (3.5-5.1) mmol/L Chloride 110 H 107 (98-107) mmol/L Carbon Dioxide 22 27 (22-30) mmol/L BUN 14 12 (7-17) mg/dL Creatinine 0.44 L 0.51 L (0.52-1.04) mg/dL Glucose 95 88 (74-99) mg/dL Calcium 8.1 L 8.5 (8.4-10.2) mg/dL Adrenal panel 03/03/22 03/04/22 Range/Units 22:15 04:40 Sodium 138 139 (137-145) mmol/L Potassium 5.4 H 4.5 (3.5-5.1) mmol/L Chloride 110 H 107 (98-107) mmol/L Carbon Dioxide 22 27 (22-30) mmol/L BUN 14 12 (7-17) mg/dL Creatinine 0.44 L 0.51 L (0.52-1.04) mg/dL Glucose 95 88 (74-99) mg/dL Calcium 8.1 L 8.5 (8.4-10.2) mg/dL Total Bilirubin 1.0 0.6 (0.2-1.3) mg/dL AST 31 13 L (14-36) U/L ALT 15 13 (4-34) U/L Alkaline Phosphatase 59 65 (38-126) U/L Total Protein 6.7 6.0 L (6.3-8.2) g/dL Albumin 4.1 3.8 (3.5-5.0) g/dL - Imaging US - abdomen: report reviewed Assessment and Plan Assessment: 36-year-old lady with recurrent bout of abdominal pain and nausea, second episode over the past week. Abdominal exam benign, appears id. dynamically stable without signs of sepsis, laboratory studies on follow-up this morning we re normal. I suspect her mild presenting leukocytosis was either reactive or having to do with mild dehydration. Gallstone present at the neck of the gallbladder on ultrasound, symptoms may relate to biliary colic, no compelling signs for acute cholecystitis. History of laparoscopic Magi-en-Y gastric bypass, differential would include potential internal hernia, gastritis or ulcer disease of the pouch or gastric remnant and other anastomotic issues. No evidence of peritonitis, abdominal exam is benign. Plan: We'll retry clear liquids this morning, scopolamine patch as needed for nausea. Will provide her with a prescription for around 10 days worth of the same. Options for treatment were discussed with the patient at length. She seems unmotivated to pursue cholecystectomy. Ideally, would have her follow up with her bariatric surgeon. If she can tolerate clear liquids would anticipate discharge home later today with outpatient follow-up with Dr. Tyler within 1-2 weeks If she has recurrence of pain and nausea with clear liquids in the emergency department she would need a computed tomography scan abdomen and pelvis with oral and IV contrast to further delineate things post gastric bypass and check for associated issues, and of no such issues are found it would be more reasonable to consider cholecystectomy. Dr. Damon will be assuming coverage for the [facility] general surgical service as of 9 AM this morning. I can be reached on [employer] if necessary. Time with Patient: Greater than 30
[2022-03-04 11:54] VITALS: BP 132/78; PULSE 80; RESP 18
== END 2022-03-04 11:53 | disposition home or self-care (01) ==
LOC: EC 19:11 → 6NMEDSUR 23:42
PROVIDERS: ADMIT Surgery; ATTEND Surgery
DX: K80.10 Calculus of gallbladder with chronic cholecystitis without obstruction (principal); E86.0 Dehydration; E11.9 Type 2 diabetes mellitus without complications; E07.9 Disorder of thyroid, unspecified; K21.9 Gastro-esophageal reflux disease without esophagitis; K57.90 Diverticulosis of intestine, part unspecified, without perforation or abscess without bleeding; F41.9 Anxiety disorder, unspecified; M19.042 Primary osteoarthritis, left hand; M19.041 Primary osteoarthritis, right hand; Z79.890 Hormone replacement therapy; Z79.1 Long term (current) use of non-steroidal anti-inflammatories (NSAID); Z79.84 Long term (current) use of oral hypoglycemic drugs; Z79.899 Other long term (current) drug therapy; Z88.0 Allergy status to penicillin; Z87.891 Personal history of nicotine dependence; Z87.19 Personal history of other diseases of the digestive system; Z98.51 Tubal ligation status; Z98.84 Bariatric surgery status; Z98.818 Other dental procedure status; Z98.890 Other specified postprocedural states
CPT/HCPCS: 96366; 96367; 96375 ×2; 96361; 96365; 99285; 36415; 80053 ×2; 82150; 83605; 83690 ×2; 85025 ×2; 81025; 83036; 76705; G0378; J2360; J2405; J1170; J1956; C9113

== ENCOUNTER 2023-08-22 17:20 | Emergency (ER) | payer OTHER ==
--- NOTE | 2023-08-22 18:14 | ED ---
Skin/Abscess/FB HPI - General Chief complaint: Skin/Abscess/Foreign Body Stated complaint: Abscess Time Seen by Provider: 08/22/23 18:13 Source: patient, RN notes reviewed Mode of arrival: ambulatory Limitations: no limitations - History of Present Illness Initial comments: 38-year-old female presented to ER with a chief complaint of perineal abscess. She states she has been having painful bowel movements for the past 2 weeks. She believed it was a hemorrhoid. She states past couple days she has been noticing an increase in size and presented to her PCP today. PCP diagnosed her with an abscess and sent her to the ER for drainage. She denies any fevers, chills, chest pain, shortness breath, abdominal pain, constipation/diarrhea, urinary complaints or peripheral edema. - Related Data Home Medications Medication Instructions Recorded Confirmed Gabapentin [Neurontin] 100 mg PO DAILY 02/06/19 03/03/22 Gabapentin [Neurontin] 200 mg PO DAILY@1700 02/06/19 03/03/22 Ibuprofen [Motrin] 800 mg PO TID PRN 02/06/19 03/03/22 Levothyroxine Sodium [Levoxyl] 200 mcg PO DAILY 02/06/19 03/03/22 Omeprazole 20 mg PO DAILY 02/06/19 03/03/22 Phentermine HCl [Adipex-P] 37.5 mg PO DAILY 02/06/19 03/03/22 methocarbamoL [Robaxin] 500 mg PO DAILY 02/06/19 03/04/22 Ascorbic Acid [Vitamin C] 1,000 mg PO DAILY 03/02/22 03/03/22 Calcium Carbonate [Calcium] 600 mg PO DAILY 03/02/22 03/03/22 Cetirizine HCl 10 mg PO DAILY PRN 03/02/22 03/03/22 Cholecalciferol [Vitamin D3 (25 50 mcg PO DAILY 03/02/22 03/03/22 Mcg = 1000 Iu)] Ciclopirox 8% Solution 1 applic TOPICAL HS PRN 03/02/22 03/03/22 Ciprofloxacin HCl [Cipro] 500 mg PO Q12HR 03/02/22 03/03/22 Fluticasone Nasal [place] [Flonase 2 spray EA NOSTRIL DAILY 03/02/22 03/03/22 Nasal [place]] Gabapentin [Neurontin] 100 mg PO DAILY@1200 PRN 03/02/22 03/03/22 HYDROcodone/APAP 5-325MG [[place] 1 tab PO TID PRN 03/02/22 03/03/22 5-325] Meloxicam [Mobic] 15 mg PO DAILY 03/02/22 03/03/22 Multivitamins, Thera [Multivitamin 1 tab PO DAILY 03/02/22 03/03/22 (formulary)] [place]-3/Dha/Epa/Fish Oil [Fish Oil 1 cap PO DAILY 03/02/22 03/03/22 1,000 mg Softgel] Ondansetron Odt [Zofran Odt] 4 mg PO TID PRN 03/02/22 03/03/22 Zinc Gluconate [Zinc] 50 mg PO DAILY 03/02/22 03/03/22 metFORMIN HCL ER [Glucophage XR] 500 mg PO HS 03/02/22 03/03/22 methocarbamoL [Methocarbamol] 500 mg PO DAILY PRN 03/02/22 03/03/22 methocarbamoL [Methocarbamol] 750 mg PO DAILY@1700 03/02/22 03/03/22 polyethylene glycoL 3350 [Miralax] 17 gm PO DAILY PRN 03/02/22 03/03/22 tiZANidine HCL 4 mg PO HS 03/02/22 03/03/22 Previous Rx's Medication Instructions Recorded Scopolamine 1 mg/72 Hr Patch 1 patch TRANSDERM Q72H PRN #3 patch 03/04/22 [TransDerm Scop] Ciprofloxacin HCl [Cipro] 500 mg PO Q12HR 12 Days #24 tab 08/22/23 metroNIDAZOLE [Flagyl] 500 mg PO BID 12 Days #24 tab 08/22/23 Allergies Allergy/AdvReac Type Severity Reaction Status Date / Time amoxicillin Allergy Rash/Hives Verified 08/22/23 17:41 Penicillins Allergy Rash/Hives Verified 08/22/23 17:41 Review of Systems ROS Statement: Those systems with pertinent positive or pertinent negative responses have been documented in the HPI. ROS Other: All systems not noted in ROS Statement are negative. Past Medical History Past Medical History: Diabetes Mellitus, GERD/Reflux, Thyroid Disorder Additional Past Medical History / Comment(s): DIVERTICULOSIS. BOWEL PERFORATION 12/03/18-NO SURGERY REQUIRED History of Any Multi-Drug Resistant Organisms: None Reported Past Surgical History: Adenoidectomy, Bariatric Surgery, Tonsillectomy, Tubal Ligation Additional Past Surgical History / Comment(s): D & C FOR MISCARRIAGE. PAIN CLINIC PROCEDURES. WISDOM TEETH REMOVED UNDER ANESTHESIA Past Anesthesia/Blood Transfusion Reactions: No Reported Reaction Past Psychological History: Anxiety Smoking Status: Former smoker Past Alcohol Use History: None Reported Past Drug Use History: None Reported - Past Family History Mother Family Medical History: No Reported History General Exam Limitations: no limitations General appearance: alert, in no apparent distress Respiratory exam: Present: normal lung sounds bilaterally. Absent: respiratory distress, wheezes, rales, rhonchi, stridor Cardiovascular Exam: Present: regular rate, normal rhythm, normal heart sounds. Absent: systolic murmur, diastolic murmur, rubs, gallop, clicks Rectal exam: Present: normal rectal tone, tenderness (6cm abscess to posterior anus. tender to touch) Skin exam: Present: warm, dry, intact, normal color. Absent: rash Course Vital Signs 08/22/23 17:39 Temperature 98.7 F Pulse Rate 96 Respiratory 16 Rate Blood Pressure 115/80 O2 Sat by Pulse 97 Oximetry Procedures - Incision & Drainage Consent Obtained: verbal consent Indication: abscess Site: buttock Size (cm): 6 Anesthetic Used: lidocaine 1% Amount (mLs): 5 I&D Cleaning Method: Alcohol Wipe Sterile Field Used?: Yes Scalpel Used: #11 Ultrasound used: No Needle Aspiration Performed?: No Irrigation Performed?: No I&D Drainage Obtained: Pus, Blood Loculation Noted: probing needed to break Insertion of drain: No Culture Obtained?: No Patient Tolerated Procedure: well, no complications Medical Decision Making - Medical Decision Making Was pt. sent in by a medical professional or institution (, PA, EDUCATION DIRECTOR, urgent care, hospital, or long term...) When possible be specific @ -Sent by PCP for drainage of abscess Did you speak to anyone other than the patient for history (EMS, parent, family, police, friend...)? What history was obtained from this source @ -No Did you review nursing and triage notes (agree or disagree)? Why? @ -I reviewed and agree with nursing and triage notes Were old charts reviewed (outside hosp., previous admission, EMS record, old EKG, old radiological studies, urgent care reports/EKG's, long term records)? Report findings @ -No old charts were reviewed Differential Diagnosis (chest pain, altered mental status, abdominal pain women, abdominal pain men, vaginal bleeding, weakness, fever, dyspnea, syncope, headache, dizziness, GI bleed, back pain, seizure, CVA, palpatations, mental health, musculoskeletal)? @ -Thrombosed hemorrhoid, internal hemorrhoid, skin tag, abscess, pilonidal cyst, this list is not meant to be all-inclusive EKG interpreted by me (3pts min.). @ -None X-rays interpreted by me (1pt min.). @ -None done CT interpreted by me (1pt min.). @ -None done U/S interpreted by me (1pt. min.). @ -None done What testing was considered but not performed or refused? (CT, X-rays, U/S, labs)? Why? @ -None What meds were considered but not given or refused? Why? @ -None Did you discuss the management of the patient with other professionals (professionals i.e. , PA, EDUCATION DIRECTOR, lab, RT, psych nurse, social welfare administrator, instant potato processor, teacher, strike warfare/missile systems officer, employment case manager)? Give summary @ -No Was smoking cessation discussed for >3mins.? @ -No Was critical care preformed (if so, how long)? @ -No Were there social determinants of health that impacted care today? How? (Homelessness, low income, unemployed, alcoholism, drug addiction, transportation, low edu. Level, literacy, decrease access to med. care, residential, rehab)? @ -No Was there de-escalation of care discussed even if they declined (Discuss DNR or withdrawal of care, Hospice)? DNR status @ -No What co-morbidities impacted this encounter? (DM, HTN, Smoking, COPD, CAD, Cancer, CVA, ARF, Chemo, Hep., AIDS, mental health diagnosis, sleep apnea, morbid obesity)? @ -None Was patient admitted / discharged? Hospital course, mention meds given and route, prescriptions, significant lab abnormalities, going to OR and other pertinent info. @ -Discharge. 38-year-old female presented to ER with chief complaint of a rectal abscess. History and physical exam completed. Vitals stable. Patient in no signs of acute distress and nontoxic-appearing. 6 cm abscess to posterior anus. Tender to touch. I&D performed with purulent drainage. Patient tolerated procedure well. Patient will be started on ciprofloxacin and Flagyl. Return parameters discussed. Patient discharged stable condition with follow-u p to PCP. Patient verbally expressed understanding and agreement with care plan. Case discussed with ED attending, Dr. Blanco. Undiagnosed new problem with uncertain prognosis? @ -No Drug Therapy requiring intensive monitoring for toxicity (Heparin, Nitro, Insulin, Cardizem)? @ -No Were any procedures done? @ -Yes Diagnosis/symptom? @ -Perirectal abscess Acute, or Chronic, or Acute on Chronic? @ -Acute Uncomplicated (without systemic symptoms) or Complicated (systemic symptoms)? @ -Uncomplicated Side effects of treatment? @ -No Exacerbation, Progression, or Severe Exacerbation? @ -No Poses a threat to life or bodily function? How? (Chest pain, [place], [place], pneumonia, PE, COPD, DKA, ARF, appy, cholecystitis, CVA, Diverticulitis, Homicidal, Suicidal, threat to staff... and all critical care pts) @ -Low Disposition Clinical Impression: Perirectal abscess Disposition: HOME SELF-CARE Condition: Stable Instructions (If sedation given, give patient instructions): Abscess Incision and Drainage (DC) Additional Instructions: Complete full course of antibiotics. Follow-up with PCP. Return to the ER for any new or worsening concerns. Prescriptions: Ciprofloxacin HCl [Cipro] 500 mg PO Q12HR 12 Days #24 tab metroNIDAZOLE [Flagyl] 500 mg PO BID 12 Days #24 tab Is patient prescribed a controlled substance at d/c from ED?: No Referrals: India Bowman MD [Primary Care Provider] - 1-2 days Time of Disposition: 19:07
[2023-08-22] MEDS: LIDOCAINE 1% INJ 10MG/ML (20 ML MDV) SQ ONE (18:34)
[2023-08-22 20:02] VITALS: BP 120/78; PULSE 77; RESP 18; TEMP 98.4
== END 2023-08-22 19:28 | disposition home or self-care (01) ==
LOC: EC 17:20
DX: K61.1 Rectal abscess (principal); Z88.0 Allergy status to penicillin; Z87.891 Personal history of nicotine dependence
CPT/HCPCS: 99283; 10060; J2001